=== PATIENT | male | born 1975 | race Caucasian/White ===

== ENCOUNTER 2017-01-18 23:27 | Emergency (ER) | payer OTHER ==
[~2017-01-18] VITALS: Ht 180.3 cm; Wt 85.0 kg
[2017-01-18 23:32] VITALS: BP 115/73; PULSE 83; RESP 18; TEMP 98.1; O2SAT 96
[2017-01-18] MEDS ORDERED: IBUPROFEN 600 MG TAB PO ONE (23:45)
[2017-01-18] MEDS ORDERED: SUBO2MIS SL (23:46)
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
== END 2017-01-19 01:22 ==
LOC: NEPC 23:27
DX: S09.90XA Unspecified injury of head, initial encounter (principal); F10.129 Alcohol abuse with intoxication, unspecified; M25.512 Pain in left shoulder; M25.522 Pain in left elbow; Z72.0 Tobacco use; Y04.2XXA Assault by strike against or bumped into by another person, initial encounter
CPT/HCPCS: 70450; 70486; 72125; 73030; 73080; 99285